=== PATIENT | male | born 1985 | race Caucasian/White ===

== ENCOUNTER 2017-12-11 04:47 | Day surgery (SDC) | payer BC, OTHER ==
[2017-12-11] MEDS ORDERED: KETOROLAC TROMETHAMINE INJ/PF 30 MG/1 ML SDV IV ONE (05:06)
[2017-12-11] MEDS ORDERED: NORMAL SALINE 1000 ML 1,000 ML IV ONE (05:06)
--- NOTE | 2017-12-11 05:11 | ER Document Report ---
ED General <CHARLY SURESH - Last Filed: 12/11/17 06:21> - General Mode of Arrival: Ambulatory Information source: Patient TRAVEL OUTSIDE OF THE [place] IN LAST 30 DAYS: No <ALYSSA CAN - Last Filed: 12/18/17 09:21> - General Chief Complaint: Abdominal Pain Stated Complaint: ABDOMINAL PAIN Time Seen by Provider: 12/11/17 04:59 Notes: Patient is a 32 year old male presenting to the emergency department complaining of RLQ abdominal pain onset around 20:00 last night. Patient describes the pain as a sharpness that radiates into his right flank. He also complains of some testicular pain. Patient denies any dysuria, nausea, vomiting or taking medications to relieve the pain. (ALYSSA CAN) - Related Data Allergies/Adverse Reactions: No Known Allergies Allergy (Unverified 12/11/17 09:29) Past Medical History - General Information source: Patient - Social History Smoking Status: Never Smoker Cigarette use (# per day): No Chew tobacco use (# tins/day): No Smoking Education Provided: No Frequency of alcohol use: Occasional Drug Abuse: None Family History: Reviewed & Not Pertinent Past Surgical History: Reports: Hx Umbilical Hernia <ALYSSA CAN - Last Filed: 12/18/17 09:21> Review of Systems - Review of Systems Constitutional: No symptoms reported EENT: No symptoms reported Cardiovascular: No symptoms reported Respiratory: No symptoms reported Gastrointestinal: See HPI, Abdominal pain Genitourinary: See HPI, Flank pain - right Male Genitourinary: See HPI, Testicular pain Musculoskeletal: No symptoms reported Skin: No symptoms reported Hematologic/Lymphatic: No symptoms reported Neurological/Psychological: No symptoms reported -: Yes All other systems reviewed and negative <ALYSSA CAN - Last Filed: 12/18/17 09:21> Physical Exam - General General appearance: Appears well, Alert In distress: None - HEENT Head: Normocephalic, Atraumatic Eyes: Normal Conjunctiva: Normal Extraocular movements intact: Yes Pupils: PERRL Neck: Normal - Respiratory Respiratory status: No respiratory distress Chest status: Nontender Breath sounds: Normal Chest palpation: Normal - Cardiovascular Rhythm: Regular Heart sounds: Normal auscultation Murmur: No Friction rub: No Gallop: None auscultated - Abdominal Inspection: Normal Distension: No distension Bowel sounds: Normal Tenderness: Tender - RLQ tender to palpation., McBurney's point - Tenderness just below. Organomegaly: No organomegaly - Back Back: Normal. No: CVA tenderness - Extremities General upper extremity: Normal ROM General lower extremity: Normal ROM - Neurological Neuro grossly intact: Yes Cognition: Normal Orientation: AAOx4 Marc Coma Scale Eye Opening: Spontaneous Marc Coma Scale Verbal: Oriented Marc Coma Scale Motor: Obeys Commands [place] Coma Scale Total: 15 Speech: Normal - Psychological Associated symptoms: Normal affect, Normal mood - Skin Skin Temperature: Warm Skin Moisture: Dry Skin Color: Normal <ALYSSA CAN - Last Filed: 12/18/17 09:21> - Vital signs Vitals: Temp Pulse Resp BP Pulse Ox 98.7 F 82 18 123/72 98 12/11/17 04:52 12/11/17 04:52 12/11/17 04:52 12/11/17 04:52 12/11/17 04:52 Course - Laboratory Result Diagrams: 12/11/17 05:10 12/11/17 05:10 - Diagnostic Test Radiology reviewed: Image reviewed, Reports reviewed - Acute appendicitis - Consults Dr. Land Time consulted: 06:20 Consulted provider: will come to ER <CHARLY SURESH - Last Filed: 12/11/17 06:21> - Laboratory Result Diagrams: 12/12/17 05:44 12/12/17 05:44 <ALYSSA CAN - Last Filed: 12/18/17 09:21> - Vital Signs Vital signs: Temp Pulse Resp BP Pulse Ox 99.4 F 93 18 133/86 H 96 12/12/17 12:57 12/12/17 12:57 12/12/17 12:57 12/12/17 12:57 12/12/17 12:57 - Laboratory Laboratory results interpreted by me: 12/11/17 12/11/17 12/11/17 05:10 05:10 05:40 Seg Neutrophils % 80.4 H Lymphocytes % 10.4 L Absolute Neutrophils 8.5 H Sodium 145.4 H Carbon Dioxide 31 H Urine Urobilinogen 4.0 H Discharge - Discharge Unit Admitted: OR <CHARLY SURESH - Last Filed: 12/11/17 06:21> <ALYSSA CAN - Last Filed: 12/18/17 09:21> - Discharge Clinical Impression: Appendicitis Qualifiers: Appendicitis type: acute appendicitis Acute appendicitis type: with localized peritonitis Qualified Code(s): K35.3 - Acute appendicitis with localized peritonitis Condition: Stable Disposition: ADMITTED INPATIENT Scribe Attestation: 12/11/17 05:32 I personally performed the services described in the documentation, reviewed and edited the documentation which was dictated to the scribe in my presence, and it accurately records my words and actions. (CHARLY SURESH) Scribe Documentation - Scribe Written by Scribe:: Kali Hays, 12/11/2017 05:11 acting as scribe for :: Vane <ALYSSA CAN - Last Filed: 12/18/17 09:21>
[2017-12-11 05:24] LABS: ABSOLUTE BASOPHILS # (AUTO) 0.1 10^3/uL (0.0-0.2); ABSOLUTE EOSINOPHILS # (AUTO) 0.1 10^3/uL (0.0-0.6); ABSOLUTE LYMPHOCYTES (AUTO) 1.1 10^3/uL (0.5-4.7); ABSOLUTE MONOCYTES (AUTO) 0.8 10^3/uL (0.1-1.4); ABSOLUTE NEUT (AUTO) 8.5 10^3/uL (1.7-8.2); BASOPHILS % (AUTO) 0.6 % (0-2); EOSINOPHILS % (AUTO) 1.1 % (0-6); HEMATOCRIT 44.1 % (37.9-51.0); HEMOGLOBIN 15.5 g/dL (13.5-17.0); LYMPHOCYTES % (AUTO) 10.4 % (13-45); MEAN CORPUSCULAR HGB CONC 35.2 g/dL (32.0-36.0); MEAN CORPUSCULAR VOLUME 85 fl (80-97); MONOCYTES % (AUTO) 7.5 % (3-13); PLATELET COUNT 168 10^3/uL (150-450); RED BLOOD COUNT 5.16 10^6/uL (4.35-5.55); SEGMENTED NEUTROPHILS % (AUTO) 80.4 % (42-78); TOTAL CELLS COUNTED % (AUTO) 100 %; WHITE BLOOD COUNT 10.5 10^3/uL (4.0-10.5)
[2017-12-11 05:41] LABS: ALANINE AMINOTRANSFERASE 45 U/L (21-72); ALBUMIN 4.2 g/dL (3.5-5.0); ALKALINE PHOSPHATASE 64 U/L (38-126); ANION GAP 9 (5-19); ASPARTATE AMINO TRANSFERASE 33 U/L (17-59); BILIRUBIN,DIRECT 0.3 mg/dL (0.0-0.4); BLOOD UREA NITROGEN 14 mg/dL (7-20); CALCIUM 9.7 mg/dL (8.4-10.2); CARBON DIOXIDE 31 mmol/L (22-30); CHLORIDE 105 mmol/L (98-107); GLUCOSE 102 mg/dL (75-110); POTASSIUM 4.2 mmol/L (3.6-5.0); SODIUM 145.4 mmol/L (137-145); TOTAL PROTEIN 6.9 g/dL (6.3-8.2)
[2017-12-11 05:52] LABS: APPEARANCE,URINE CLEAR; BILIRUBIN,URINE NEGATIVE (NEGATIVE); COLOR,URINE YELLOW; GLUCOSE, URINE NEGATIVE (NEGATIVE); KETONES,URINE NEGATIVE (NEGATIVE); LEUKOCYTE ESTERASE,URINE NEGATIVE (NEGATIVE); NITRITE,URINE NEGATIVE (NEGATIVE); PROTEIN,URINE NEGATIVE (NEGATIVE); URINE SPECIFIC GRAVITY 1.013
--- NOTE | 2017-12-11 06:13 | RADIOLOGY REPORT (SQ) ---
EXAM DESCRIPTION: CT ABDOMEN WITHOUT IV CONTRAST COMPLETED DATE/TME: 12/11/2017 05:30 CLINICAL HISTORY: 32 years Male, RLQ abd pain, radiate to testicle and flank Comparison: None. Technique: No contrast. Coronal and sagittal reformat. This exam was performed according to our departmental dose-optimization program, which includes automated exposure control, adjustment of the mA and/or kV according to patient size and/or use of iterative reconstruction technique.[facility]: Dose Right [facility]: CareDose [facility]: Dose Right [facility]: Teradose 4D [facility]: [place] LIMITATIONS: None Findings: Acute appendicitis pattern includes a 1.0 cm diameter inflamed appendix with 0.8 cm appendicolith and moderate surrounding fat streaking and small surrounding fluid. Colonic diverticulosis. Unenhanced lower thorax, abdominopelvic structures, and musculoskeleton appear otherwise grossly unremarkable. Impression: Acute appendicitis.
[2017-12-11] MEDS ORDERED: DEXTROSE 5%-NORMAL SALINE 1,000 ML IV ONE (06:24)
[2017-12-11] MEDS ORDERED: PIPERACILLIN/TAZOBACTAM 3.375 GM VIAL IV ONE (06:24)
--- NOTE | 2017-12-11 07:41 | PDOC H&P ---
History of Present Illness Admission Date/PCP: GAURANG WARREN MD 12/11/17 Patient complains of: RLQ PAIN History of Present Illness: EMELIA SERVIN is a 32 year old male healthy with a hx of RLQ pain x 12 hours ; patient found to have acute, nonperforated appendicitis on CT scan this AM Social History Smoking Status: Unknown if Ever Smoked Family History Family History: Reviewed & Not Pertinent Parental Family History Reviewed: No Children Family History Reviewed: No Sibling(s) Family History Reviewed.: No Medication/Allergy Allergies/Adverse Reactions: No Known Allergies Allergy (Unverified 12/11/17 04:49) Physical Exam Vital Signs: Temp Pulse Resp BP Pulse Ox 98.7 F 82 18 123/72 98 12/11/17 04:52 12/11/17 04:52 12/11/17 04:52 12/11/17 04:52 12/11/17 04:52 Intake & Output 12/10/17 12/11/17 12/12/17 06:59 06:59 06:59 Weight 83.1 kg General appearance: PRESENT: no acute distress, cooperative Eye exam: PRESENT: EOMI Mouth exam: PRESENT: neck supple Neck exam: PRESENT: full ROM Respiratory exam: PRESENT: clear to auscultation greg Cardiovascular exam: PRESENT: RRR GI/Abdominal exam: PRESENT: hypoactive bowel sounds, soft, tenderness - Right lower quadrant with grimacing, other - umbilical scar Results Laboratory Results: 12/11/17 05:10 12/11/17 05:10 12/11/17 12/11/17 12/11/17 05:10 05:10 05:40 WBC 10.5 RBC 5.16 Hgb 15.5 Hct 44.1 MCV 85 MCH 30.0 MCHC 35.2 RDW 14.0 Plt Count 168 Seg Neutrophils % 80.4 H Lymphocytes % 10.4 L Monocytes % 7.5 Eosinophils % 1.1 Basophils % 0.6 Absolute Neutrophils 8.5 H Absolute Lymphocytes 1.1 Absolute Monocytes 0.8 Absolute Eosinophils 0.1 Absolute Basophils 0.1 Sodium 145.4 H Potassium 4.2 Chloride 105 Carbon Dioxide 31 H Anion Gap 9 BUN 14 Creatinine 0.88 Est GFR ( Amer) > 60 Est GFR (Non-Af Amer) > 60 Glucose 102 Calcium 9.7 Total Bilirubin 1.0 AST 33 ALT 45 Alkaline Phosphatase 64 Total Protein 6.9 Albumin 4.2 Urine Color YELLOW Urine Appearance CLEAR Urine pH 6.0 Ur Specific [place] 1.013 Urine Protein NEGATIVE Urine Glucose (UA) NEGATIVE Urine Ketones NEGATIVE Urine Blood NEGATIVE Urine Nitrite NEGATIVE Ur Leukocyte Esterase NEGATIVE Urine WBC (Auto) 0 Urine RBC (Auto) 0 Assessment & Plan - Diagnosis (1) Appendicitis Qualifiers: Appendicitis type: acute appendicitis Acute appendicitis type: with localized peritonitis Qualified Code(s): K35.3 - Acute appendicitis with localized peritonitis - Plan Summary Plan Summary: A/ Acute, nonperforated appendicitis Healthy male CT scan significant for inflamed appendix P/ laparoscopic appendectomy, possible open Procedure, risks, benefits, complications discussed with the patient, his questions were answered, and he decided to proceed
[2017-12-11] MEDS ORDERED: FENTANYL CITRATE INJ/PF 100 MCG/2 ML AMPUL ONE (07:51)
[2017-12-11] MEDS ORDERED: BUPIVACAINE HCL 0.5%-EPI 1:200000 INJ/PF 30 ML VIAL ONE (07:52)
[2017-12-11] MEDS ORDERED: EPHEDRINE SULFATE INJ 50 MG/1 ML AMPULE ONE (07:52)
[2017-12-11] MEDS ORDERED: PROPOFOL INJ 200 MG/20 ML VIAL IV ONE (07:52)
[2017-12-11] MEDS ORDERED: ACETAMINOPHEN 1,000 MG/100 ML RTUPB IV ONE (07:52)
[2017-12-11] MEDS ORDERED: MORPHINE SULFATE 10 MG/ML INJ ONE (07:52)
[2017-12-11] MEDS ORDERED: MIDAZOLAM 2 MG/2 ML INJ ONE (07:52)
[2017-12-11] MEDS ORDERED: PROMETHAZINE HCL INJ 25 MG/1 ML VIAL IV PRN (08:49)
[2017-12-11] MEDS ORDERED: DIPHENHYDRAMINE HCL 50 MG/ML VIAL IV PRN (08:49)
[2017-12-11] MEDS ORDERED: FENTANYL CITRATE INJ/PF 100 MCG/2 ML AMPUL IV PRN ×3 (08:49)
[2017-12-11] MEDS ORDERED: MEPERIDINE HCL/PF INJ 25 MG/1 ML DISP.SYRIN IV PRN (08:49)
[2017-12-11] MEDS ORDERED: ROCURONIUM BROMIDE INJ 50 MG/5 ML VIAL IV ONE (09:03)
[2017-12-11] MEDS ORDERED: ONDANSETRON HCL INJ/PF 4 MG/2 ML SDV ONE (09:03)
[2017-12-11] MEDS ORDERED: SUCCINYLCHOLINE CHLORIDE INJ 200 MG/10 ML VIAL ONE (09:03)
[2017-12-11] MEDS ORDERED: NEOSTIGMINE METHYLSULFATE 10 MG/10 ML VIAL ONE (09:03)
[2017-12-11] MEDS ORDERED: LIDOCAINE 2% INJ-PF (20 MG/ML) 2 ML AMPUL ONE (09:03)
[2017-12-11] MEDS ORDERED: GLYCOPYRROLATE 1 MG/5 ML SYRINGE ONE (09:03)
--- NOTE | 2017-12-11 09:14 | Operative Report ---
Nonrecallable Operative Report DATE OF SURGERY: 12/11/17 PREOPERATIVE DIAGNOSIS: acute nonperforated appendicitis POSTOPERATIVE DIAGNOSIS: same OPERATION: laparoscopic appendectomy SURGEON: DENTON CELIS ANESTHESIA: GA - plus 20 mL 1% marcaine with epi TISSUE REMOVED OR ALTERED: appendix COMPLICATIONS: none ESTIMATED BLOOD LOSS: < 5 Ml INTRAOPERATIVE FINDINGS: inflamed, non-perforatefd appendicitis PROCEDURE: see dictation
[2017-12-11] MEDS ORDERED: NORMAL SALINE 1000 ML 1,000 ML IV PRN (09:40)
[2017-12-11] MEDS ORDERED: ONDANSETRON HCL INJ/PF 4 MG/2 ML SDV IV PRN (09:43)
[2017-12-11] MEDS: PIPERACILLIN SODIUM/TAZOBACTAM 3.375 GM in NORMAL SALINE 100 ML IV SCH ×2 (11:27→17:32)
[2017-12-11] MEDS: FAMOTIDINE INJ/PF 20 MG/2 ML SDV IV SCH ×2 (11:27→21:24)
[2017-12-11] MEDS: MORPHINE SULFATE 10 MG/ML INJ IV PRN ×3 (12:07→22:18)
--- NOTE | 2017-12-11 12:15 | OPERATIVE REPORT E ---
Operative Report NAME: EMELIA SERVIN : 1985 AGE: 32Y DATE OF SURGERY: 12/11/2017 ROOM: 427 PREOPERATIVE DIAGNOSIS: Acute appendicitis. POSTOPERATIVE DIAGNOSIS: Acute appendicitis. OPERATION: Laparoscopic appendectomy. SURGEON: DENTON CELIS M.D. NETWORK SUPPORT ANALYST: None. ANESTHESIA: General plus 20 mL of 0.5% lidocaine with epinephrine. COMPLICATIONS: None. FLUIDS: 1000 mL. URINE OUTPUT: None. DRAINS: None. INDICATIONS AND FINDINGS: Healthy 32-year-old male who presented to the Emergency Room with a fever and recurrent pain for 12 hours, found to have an acute appendicitis, nonperforated on CAT scan. Procedure, benefits, complications explained to the patient. He understands all the above and decided to proceed. DESCRIPTION OF PROCEDURE: The procedure was done in the operating room. The patient was placed in the supine position. General anesthesia induced by endotracheal intubation. The abdomen was shaved, prepped, and draped in the usual fashion. An incision was made just above the umbilicus. A 10 mm port with Optiview adapter and scope was inserted through the abdominal wall into the peritoneal cavity. Pneumoperitoneum was established. Under direct visualization a 10 mm port was inserted through the right upper quadrant and the 5 mm port of the umbilicus was removed and replaced with a 12 mm port, and a 10 mm port was then placed in the left lower quadrant. The patient was placed in a Trendelenburg position with the right side elevated. The appendix was found to be anterior and plastered against the anterior abdominal wall. It was gently dissected from the abdominal wall, after which the mesoappendix was divided with a LigaSure, the appendix stapled at the base with laparoscopic stapler and removed with Endobag from the abdominal cavity. CO2 pneumoperitoneum was re-established and the suture line was normal. The lower quadrant was irrigated with normal saline and this was fully aspirated. Under direct visualization a [id number]-mc-[id number] 0-Vicryl suture was placed across the umbilical fascial defect. At this point all instruments were removed. The CO2 pneumoperitoneum was released. The ports were removed. The fascial defect at the umbilicus was closed with the previously placed 0-Vicryl [id number] suture. All 3 incisions were then closed with 4-0 Vicryl running subcuticular suture and Dermabond applied. The patient tolerated the procedure well, extubated, transferred to the recovery room in satisfactory condition. DICTATING PHYSICIAN: DENTON CELIS M.D. [id number] PHY#: [id number] ID: [id number] JOB#: [id number] ACCT: [id number] cc:DENTON CELIS M.D. > [facility]
[2017-12-12] MEDS: PIPERACILLIN SODIUM/TAZOBACTAM 3.375 GM in NORMAL SALINE 100 ML IV SCH ×3 (01:00→12:07)
[2017-12-12] MEDS: MORPHINE SULFATE 10 MG/ML INJ IV PRN ×2 (02:05→07:47)
[2017-12-12 06:36] LABS: HEMATOCRIT 41.2 % (37.9-51.0); HEMOGLOBIN 14.5 g/dL (13.5-17.0); MEAN CORPUSCULAR HEMOGLOBIN 30.4 pg (27.0-33.4); MEAN CORPUSCULAR HGB CONC 35.1 g/dL (32.0-36.0); MEAN CORPUSCULAR VOLUME 87 fl (80-97); PLATELET COUNT 167 10^3/uL (150-450); RED BLOOD COUNT 4.76 10^6/uL (4.35-5.55); RED CELL DISTRIBUTION WIDTH 13.7 % (11.5-14.0); WHITE BLOOD COUNT 11.4 10^3/uL (4.0-10.5)
[2017-12-12 06:47] LABS: ANION GAP 9 (5-19); BLOOD UREA NITROGEN 10 mg/dL (7-20); CALCIUM 8.7 mg/dL (8.4-10.2); CARBON DIOXIDE 26 mmol/L (22-30); CHLORIDE 109 mmol/L (98-107); GLUCOSE 113 mg/dL (75-110); POTASSIUM 4.1 mmol/L (3.6-5.0); SODIUM 144.1 mmol/L (137-145)
--- NOTE | 2017-12-12 09:19 | PDOC PROGRESS REPORT ---
Subjective Progress Note for:: 12/12/17 Subjective:: comfortable, good appetitie Reason For Visit: APPENDICITIS Physical Exam Vital Signs: Temp Pulse Resp BP Pulse Ox 99.6 F 90 18 136/83 H 95 12/12/17 08:00 12/12/17 08:00 12/12/17 08:00 12/12/17 08:00 12/12/17 08:00 Intake & Output 12/11/17 12/12/17 12/13/17 06:59 06:59 06:59 Intake Total 4889 Output Total 2695 Balance 2194 Weight 86.3 kg General appearance: PRESENT: no acute distress Respiratory exam: PRESENT: clear to auscultation greg Cardiovascular exam: PRESENT: RRR GI/Abdominal exam: PRESENT: soft, tenderness - at incision site, other - wounds c/d/i Results Laboratory Results: 12/12/17 05:44 12/12/17 05:44 12/12/17 12/12/17 05:44 05:44 WBC 11.4 H RBC 4.76 Hgb 14.5 Hct 41.2 MCV 87 MCH 30.4 MCHC 35.1 RDW 13.7 Plt Count 167 Sodium 144.1 Potassium 4.1 Chloride 109 H Carbon Dioxide 26 Anion Gap 9 BUN 10 Creatinine 0.83 Est GFR ( Amer) > 60 Est GFR (Non-Af Amer) > 60 Glucose 113 H Calcium 8.7 Assessment & Plan - Diagnosis (1) Appendicitis Qualifiers: Appendicitis type: acute appendicitis Acute appendicitis type: with localized peritonitis Qualified Code(s): K35.3 - Acute appendicitis with localized peritonitis Is this a current diagnosis for this admission?: Yes - Plan Summary Plan Summary: A/ POD#1 after lap appy VSS, AF WBC slightly elevated PE unremarkable good appetite Patient comfortable flatus present P/ Home today f/u in the office next week with MARBELLA Xiong resume activities and diet Shower only x 2 weeks, then can bathe Tylenol and Aleve for pain as needed no wound care needed
[2017-12-12] MEDS ORDERED: BISACODYL 5 MG TABEC PO ONE (09:30)
[2017-12-12] MEDS: FAMOTIDINE INJ/PF 20 MG/2 ML SDV IV SCH (09:55)
[2017-12-12 12:57] VITALS: BP 133/86
--- NOTE | 2017-12-12 22:40 | DISCHARGE SUMMARY E ---
Discharge Summary NAME: EMELIA SERVIN : 1985 AGE: 32Y ADMITTED: 12/11/2017 DISCHARGED: 12/12/2017 FINAL DIAGNOSIS: Acute appendicitis. PROCEDURE: Laparoscopic appendectomy on 12/11/17. HOSPITAL COURSE: A 32-year-old male, healthy, who presented to emergency room with right upper quadrant pain. A CT scan was done revealing acute appendicitis. White blood cell count was normal. The patient was taken to surgery on the same day. Underwent laparoscopic appendectomy uneventful. His hospital course was uneventful. His vital signs remained stable. White blood cell count was slightly elevated above 11. Physical exam was unremarkable. The incision was clean, dry, intact. Abdomen soft. The patient was able to tolerate p.o. well and had flatus. DISCHARGE ORDERS: The patient discharged home on 12/12/17. He was given a Tylenol and Aleve p.r.n. for pain. No wound care needed. To shower only for about 2 weeks then he can bathe. Activity as tolerated. Resume regular diet. Follow up in the office MARBELLA Xiong, next week. DICTATING PHYSICIAN: DENTON CELIS M.D. [id number] PHY#: [id number] ID: [id number] JOB#: [id number] ACCT: [id number] cc:DENTON CELIS M.D. > [facility]
== END 2017-12-12 13:39 | disposition home or self-care (01) ==
LOC: ER 04:47 → EH 07:54 → UNDOADMIN 07:54 → EH 09:00 → INOR 09:00 → 4S 10:04 → OROUT 16:16 → 4S 16:16 → ER 16:16 → OROUT 12-12 13:39 → UNDODISIN 12-12 13:39
PROVIDERS: ATTEND Surgery
DX: K35.3 Acute appendicitis with localized peritonitis (principal)
CPT/HCPCS: 99285; 96361; 96375; 96365; 36415 ×2; 85025; 85027; 80048; 80053; 81001; 88304 ×2; 76380; 94799; 44970; J2250; J3490 ×4; J3010; J1885; J2270 ×2; J0330; J2405; J7030; J2704; S0028 ×2; J2543; J0131; 840